=== PATIENT | female | born 1950 | race Caucasian/White ===

== ENCOUNTER 2023-05-07 11:53 | Day surgery (SDC) | payer OTHER, MEDICARE ==
[2023-05-07] MEDS: Ringers Lactate 1,000 ML IV ONE (13:10)
[2023-05-07 13:37] LABS: Hematocrit 34.2 % (36.0-45.0); Lymphocytes % 37.2 % (15.3-44.8); MCV 92.5 fL (80-100); MPV 9.1 fL (7.6-11.3); Platelets 141 thou/uL (152-406)
[2023-05-07 13:44] LABS: Potassium 4.2 mEq/L (3.5-5.1)
[2023-05-07] MEDS ORDERED: LIDOCAINE 2% MPF 5 ML VIAL ONE (14:34)
[2023-05-07] MEDS ORDERED: MIDAZOLAM HCL 2 MG/2 ML INJ ONE (14:34)
[2023-05-07] MEDS ORDERED: propofoL 200 MG/20 ML VIAL IV ONE (14:34)
[2023-05-07] MEDS: CEFAZOLIN SODIUM 2 GM/VIAL ONE (14:38)
[2023-05-07] MEDS ORDERED: FENTANYL CITR 100 MCG/2 ML ONE (14:52)
[2023-05-07] MEDS ORDERED: dexAMETHasone 4 MG/ML VIAL ONE (14:53)
[2023-05-07] MEDS ORDERED: ONDANSETRON 4 MG/2 ML VIAL ONE (14:53)
[2023-05-07] MEDS ORDERED: EPHEDRINE SULF 50 MG/ML VIAL ONE (15:01)
[2023-05-07] MEDS: BUPIVACAINE 0.25% PF 10 ML VIAL ONE (15:05)
--- NOTE | 2023-05-07 15:25 | P.OP ---
Preoperative diagnosis: LEFT Buttock Cyst Postoperative diagnosis: LEFT Buttock Cyst Primary procedure: Wide Local Excision of LEFT Buttock Cyst Anesthesia: GETA + Local Estimated blood loss: <2cc Specimen: LEFT Buttock Cyst Findings: ~ 5cm x 4cm x 4 cm ellipse of tissue taken Complications: None Transferred to: Recovery Room Condition: Good
--- NOTE | 2023-05-07 16:04 | EKG ---
Test Date: 2023-05-07 Test Time: 13:15:51 Guard Captain: DODIE MEASUREMENT RESULTS: Intervals: Rate: 68 LA: 172 QRSD: 84 QT: 420 QTc: 446 [place]: P: 31 LA: 172 QRS: -11 T: 73 INTERPRETIVE STATEMENTS: Normal sinus rhythm with sinus arrhythmia Normal ECG No previous ECG available for comparison Electronically Signed On 05-07-23 16:04:13 [employer] by Feliberot Germain
[2023-05-07] MEDS: HYDROCODONE/APAP 5/325 MG TAB ONE (16:10)
--- NOTE | 2023-05-07 16:35 | OP ---
Date of Procedure: 05/07/2023 Surgeon: Fransico Oconnell MD, Preoperative Diagnosis: Left buttock cyst. Postoperative Diagnosis: Left buttock cyst. Procedure Performed: Wide local excision of left buttock cyst. Anesthesia: General endotracheal plus local with 0.25% Marcaine. Estimated Blood Loss: Less than 2 cc. Specimen: Left buttock cyst. Findings: Approximately 5 cm x 4 cm x 4 cm ellipse of tissue taken with hard cystic mass near the is chium. Complications: None. Disposition: Patient was transferred to recovery room in good condition. Procedure In Detail: After informed consent was obtained, patient was brought to the operating room, prepped and draped in the usual sterile fashion. After adequate anesthesia was achieved, I made an elliptical incision down for approximately 5 cm down to subcutaneous tissues. Cystic type material w as appreciated at this point. I then circumferentially dissected using electrocautery to encompass t he entire cyst leaving it intact without rupture. I circumferentially removed the cyst intact within the limits of normal tissue and adipose tissue down in the subcutaneous tissues and ultimately sent this off for pathologic examination. The area was copiously irrigated. Hemostasis was easily achiev ed with electrocautery. The skin was then closed using interrupted 3-0 nylon sutures and a sterile d ressing was placed over top. The patient tolerated the procedure well without evidence of complication and transferred to PACU in good condition. All counts were correct at the e nd of the case. CHRISTELLE/SABINA Voice ID: [id number] Report ID: [id number]
[2023-05-07 17:17] VITALS: BP 147/67; TEMP 97.7; O2SAT 97
== END 2023-05-07 16:50 | disposition home or self-care (01) ==
LOC: OR 11:53
PROVIDERS: ATTEND Surgery
PROC: 0JB90ZZ Excision of Buttock Subcutaneous Tissue and Fascia, Open Approach (ICD-10-PCS; principal; 2023-05-07 13:50)
DX: L94.2 Calcinosis cutis (principal); D23.5 Other benign neoplasm of skin of trunk
CPT/HCPCS: 11406; 93005; 85025; 80048; 36415; 88305; J2704; J1100; J2001; J2250; J3010; J2405; J7120; 88304